=== PATIENT | female | born 1985 | race Caucasian/White ===

== ENCOUNTER 2017-10-10 13:25 | Inpatient (IN) | payer BC ==
[~2017-10-10] VITALS: Ht 160 cm; Wt 70.5 kg
[2017-10-16] VITALS (38 sets, daily range): BP systolic 98–132; BP diastolic 53–89; PULSE 53–106; TEMP 97.8–98.7
[2017-10-16] MEDS ORDERED: PRENATAL 19 CH1 EACH PO (07:48)
[2017-10-16 07:57] LABS: BASO % 0.3 % (0.0-2.0); EOS # 0.1 (0.0-0.7); EOS % 0.6 % (0-4.0); GRAN # 6.6 (1.4-6.5); GRAN % 72.9 % (42.2-75.2); HEMOGLOBIN 11.8 g/dl (12.5-16.0); LYMPH # 1.6 (1.2-3.4); LYMPH % 17.1 % (20.0-51.0); MEAN CELL VOLUME 87 fl (80.0-100.0); MEAN CORPUSCULAR HEMOGLOBIN 29 pg (27.0-31.0); MEAN CORPUSCULAR HGB CONC 34 g/dl (33.0-37.0); MEAN PLATELET VOLUME 12.7 fl (7.4-10.4); MONO # 0.8 (0.1-0.6); MONO % 8.5 % (1.7-9.3); PLATELET COUNT 148 K/mm3 (130-400); RED BLOOD COUNT 4.04 M/mm3 (4.10-5.30); REDCELL DISTRIBUTION WIDTH-CV 11.9 % (11.5-14.5)
[2017-10-16 08:00] LABS: HEMATOCRIT 35.1 % (37.0-47.0)
[2017-10-17 04:30] VITALS: BP 112/69; PULSE 67; TEMP 98.3
[2017-10-17 07:25] VITALS: BP 109/74; PULSE 72; TEMP 98
[2017-10-17] MEDS ORDERED: PERCOCET 325 MG1 TA2 PO (09:01)
[2017-10-17] MEDS ORDERED: IBU800 M1 PO (09:01)
[2017-10-17 09:59] LABS: COLLECTION METHOD CLEAN CATCH
[2017-10-17 10:16] LABS: PH 6 (5-8); SQUAMOUS EPITHELIAL 0-2 /hpf; URINE APPEARANCE Clear; URINE BACTERIA None Seen /hpf; URINE BILIRUBIN Negative (NEGATIVE); URINE BLOOD 3+ (NEGATIVE); URINE CALCIUM OXALATE CRYSTAL Present /hpf; URINE COLOR Yellow; URINE GLUCOSE Negative (NEGATIVE); URINE KETONE Negative (NEGATIVE); URINE LEUKOCYTE ESTERASE Trace (NEGATIVE); URINE NITRATE Negative (NEGATIVE); URINE PROTEIN(semi-quant) 1+ (NEGATIVE); URINE RBC >50 /hpf; URINE UROBILINOGEN Negative (NEGATIVE)
== END 2017-10-17 17:30 | disposition home or self-care (01) | DRG 775 ==
LOC: LDR 10-16 07:08 → OB 10-16 17:45 → LDR 10-21 13:25
PROVIDERS: Student in an Organized Health Care Education/Training Program
PROC: 10E0XZZ Delivery of Products of Conception, External Approach (ICD-10-PCS; principal; 2017-10-16)
PROC: 10907ZC Drainage of Amniotic Fluid, Therapeutic from Products of Conception, Via Natural or Artificial Opening (ICD-10-PCS; 2017-10-16)
PROC: 3E033VJ Introduction of Other Hormone into Peripheral Vein, Percutaneous Approach (ICD-10-PCS; 2017-10-16)
PROC: 0UQGXZZ Repair Vagina, External Approach (ICD-10-PCS; 2017-10-16)
DX: O71.4 Obstetric high vaginal laceration alone (principal); Z3A.39 39 weeks gestation of pregnancy; Z37.0 Single live birth
CPT/HCPCS: J2590; J2795; J7120